=== PATIENT | female | born 2000 | race Hispanic/Latino ===

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

== ENCOUNTER 2019-08-15 15:38 | Outpatient (CLI) | payer OTHER ==
--- NOTE | 2019-08-15 16:05 | RAD ---
EXAM: RIGHT KNEE FOUR VIEWS: 08/15/19 HISTORY: Right knee acute pain. Patient has Down's syndrome. FINDINGS/IMPRESSION: No fracture, dislocation, or other significant acute osseous process. POS: RIGOBERTO
== END 2019-08-15 15:39 | disposition home or self-care (01) ==
LOC: BICRAD 15:38
PROVIDERS: ATTEND Family Medicine
DX: M25.561 Pain in right knee (principal)

== ENCOUNTER 2020-01-01 14:19 | Outpatient (CLI) | payer OTHER ==
--- NOTE | 2020-01-02 03:13 | EEG ---
DATE OF SERVICE: DESCRIPTION OF THE RECORD: Waking background is a 9 hertz low amplitude alpha frequency seen occipitally. There is quite a bit of EMG artifact anteriorly. The patient appears to be awake throughout the study. Photic stimulation was unremarkable. No epileptiform features were seen. IMPRESSION: This is a normal awake EEG with some limitation due to muscle artifact. Job ID: [id number]
== END 2020-01-01 14:20 | disposition home or self-care (01) ==
LOC: EEG 14:19
PROVIDERS: ATTEND Psychiatry & Neurology Neurology
DX: G40.209 Localization-related (focal) (partial) symptomatic epilepsy and epileptic syndromes with complex partial seizures, not intractable, without status epilepticus (principal)
CPT/HCPCS: 95816

== ENCOUNTER 2020-10-20 03:08 | Emergency (ER) | payer OTHER | END 2020-10-20 04:54 | disposition home or self-care (01) | LOC: ERS 03:08 | DX: M25.561 Pain in right knee (principal); G89.29 Other chronic pain; G43.909 Migraine, unspecified, not intractable, without status migrainosus ==

== ENCOUNTER 2020-10-23 18:28 | Emergency (ER) | payer OTHER ==
[2020-10-23 20:53] LABS: #Basophils 0.1 thou/uL (0.0-0.2); #Lymphocytes 1.5 thou/uL (1.20-3.40); #Monocytes 0.5 thou/uL (0.11-0.59); %Eosinophils 0.7 % (0.0-10.0); %Lymphocytes 21.2 % (21.0-51.0); %Monocytes 6.6 % (0.0-10.0); %Neutrophils 70.5 % (42.0-75.0); Hemoglobin 14.1 g/dL (12.0-16.0); Mean Corpuscular HGB CONC 35.3 g/dL (32.0-36.0); Mean Corpuscular Hemoglobin 32.7 pg (27.0-31.0); Mean Corpuscular Volume 92.6 fL (78.0-98.0); Platelet Count 217 thou/uL (130-400); RBC Distribution Width 12.7 % (11.5-14.5); White Blood Cell (WBC) Count 7.1 thou/uL (4.8-10.8)
[2020-10-23 21:19] LABS: ALT (SGPT) 11 U/L (8-55); AST (SGOT) 16 U/L (5-34); Albumin 3.9 g/dL (3.5-5.0); Alkaline Phosphatase 88 U/L (40-110); Anion Gap 12 mmol/L (10-20); BUN (Urea Nitrogen) 11 mg/dL (7.0-18.7); Bilirubin, Total 0.6 mg/dL (0.2-1.2); CK (CPK) 34 U/L (29-168); Calc. Creatinine Clearance 0 mL/min (70-130); Carbon Dioxide 29 mmol/L (22-29); Chloride 104 mmol/L (98-107); Globulin 3.2 g/dL (2.4-3.5); Glucose 95 mg/dL (70-105); Protein, Total 7.1 g/dL (6.0-8.3); Sodium 141 mmol/L (136-145)
== END 2020-10-23 21:36 | disposition home or self-care (01) ==
LOC: ERS 18:28
DX: M25.561 Pain in right knee (principal); M25.562 Pain in left knee; R25.2 Cramp and spasm
CPT/HCPCS: 36415; 80053; 82550; 85025; 99283

== ENCOUNTER 2020-11-23 15:47 | Outpatient (CLI) | payer OTHER ==
[2020-11-24 00:58] LABS: SARS-CoV-2 PCR by NAA Not Detected (NotDetected)
== END 2020-11-23 15:48 | disposition home or self-care (01) ==
LOC: LABBT 15:47
PROVIDERS: ATTEND Orthopaedic Surgery
DX: Z01.812 Encounter for preprocedural laboratory examination (principal); Z20.822 Contact with and (suspected) exposure to COVID-19
CPT/HCPCS: 87635; U0003; U0005

== ENCOUNTER 2020-11-26 10:54 | Day surgery (SDC) | payer MEDICARE, OTHER ==
[2020-11-25 09:59] VITALS: BMI 22.2
== END 2020-11-26 15:00 | disposition home or self-care (01) ==
LOC: MRI 10:54
PROVIDERS: ATTEND Orthopaedic Surgery
DX: M54.16 Radiculopathy, lumbar region (principal); Q90.9 Down syndrome, unspecified; R16.0 Hepatomegaly, not elsewhere classified; Z79.899 Other long term (current) drug therapy; Z88.8 Allergy status to other drugs, medicaments and biological substances; Z91.013 Allergy to seafood
CPT/HCPCS: 72148

== ENCOUNTER 2020-12-17 11:00 | Outpatient (CLI) | payer MEDICARE, OTHER ==
[~2020-12-17 11:00] MED LIST: Iopamidol-370 76% 500 ML 1 ML ONE
== END 2020-12-17 11:01 | disposition home or self-care (01) ==
LOC: BICCT 11:00
PROVIDERS: ATTEND Family Medicine
DX: R16.0 Hepatomegaly, not elsewhere classified (principal)
CPT/HCPCS: 74177

== ENCOUNTER 2022-09-22 13:02 | Outpatient (CLI) | payer OTHER, MEDICAID | END 2022-09-22 13:03 | disposition home or self-care (01) | LOC: CT 13:02 | PROVIDERS: ATTEND Psychiatry & Neurology Neurology | DX: G43.009 Migraine without aura, not intractable, without status migrainosus (principal); R29.810 Facial weakness | CPT/HCPCS: 70450 ==